=== PATIENT | female | born 1995 | race Caucasian/White ===

== ENCOUNTER → 2019-01-15 | Day surgery (SDC) | payer OTHER ==
[~2019-01-15] VITALS: Ht 152.4 cm; Wt 59.0 kg
[~2019-01-15] MED LIST: CYTOTEC100 MCG; MIFEPREX200 MG
== END | disposition home or self-care (01) ==
LOC: ER 03:54 → CIR.AMB 11:22
DX: O03.4 Incomplete spontaneous abortion without complication (principal)